=== PATIENT | female | born 1950 | race Caucasian/White ===

== ENCOUNTER 2024-06-03 12:23 | Emergency (ER) | payer MEDICARE ==
[~2024-06-03] VITALS: Ht 162.6 cm; Wt 59.0 kg
[2024-06-03 13:18] LABS: BASOPHILS # (AUTO) 0.03 K/uL (0.00-0.20); BASOPHILS % (AUTO) 0.5 % (0.0-5.0); EOSINOPHILS # (AUTO) 0.06 K/uL (0.00-0.70); HEMATOCRIT 39.8 % (36-48); IMMATURE GRANULOCYTE ABSOLUTE 0.02 K/uL (0-1); LYMPHOCYTES # (AUTO) 1.4 K/uL (1.0-4.8); LYMPHOCYTES % (AUTO) 23.8 % (21.0-51.0); MEAN CORPUSCULAR HEMOGLOBIN 31.3 pg (27.0-33.0); MEAN CORPUSCULAR HGB CONC 33.2 g/dL (32.0-36.0); MEAN CORPUSCULAR VOLUME 94.3 fL (79-99); MONOCYTES # (AUTO) 0.5 K/uL (0.1-1.0); MONOCYTES % (AUTO) 8.4 % (3.0-13.0); NEUTROPHILS # (AUTO) 3.9 K/uL (1.8-7.7); PLATELET COUNT (AUTO) 202 K/uL (130-400); RED BLOOD CELL COUNT(AUTO) 4.22 MIL/uL (4.00-5.50); RED CELL DISTRIBUTION WIDTH 13.7 % (11.0-15.5)
[2024-06-03 13:53] LABS: ALBUMIN 3.6 g/dL (3.5-5.0); BILIRUBIN,TOTAL 0.5 mg/dL (0.2-1.0); CREATININE 0.6 mg/dL (0.5-1.0); POTASSIUM 3.8 mmol/L (3.5-5.1); TOTAL PROTEIN, SERUM 6.8 g/dL (6.0-8.3)
[2024-06-03] MEDS: CEFAZOLIN SODIUM 2 GM VIAL IVPB STA (14:36)
[2024-06-03] MEDS: LIDOCAINE HCL 1% 20 ML VIAL INJ SCH (14:36)
[2024-06-03] MEDS: NEOMY SULF/BACITRA/POLYMYXIN B 1 EACH PACKET TP ONE (14:36)
[2024-06-03] MEDS: ONDANSETRON 4MG INJ IVP ONE (14:36)
[2024-06-03] MEDS: MORPHINE 2 MG SYG IVP ONE (14:37)
[2024-06-03] MEDS: TETANUS/DIPHTHERIA TOXOID [ADULT] 0.5 ML VIAL IM ONE (14:38)
[2024-06-03 14:57] VITALS: BP 148/76; PULSE 80; RESP 17; O2SAT 98
[2024-06-03] MEDS ORDERED: ACET-2079 PO (15:18)
[2024-06-03] MEDS ORDERED: CEPH500B PO (15:18)
== END 2024-06-03 15:42 | disposition home or self-care (01) ==
LOC: EDH 12:23
DX: S62.632B Displaced fracture of distal phalanx of right middle finger, initial encounter for open fracture (principal); E78.00 Pure hypercholesterolemia, unspecified; K21.9 Gastro-esophageal reflux disease without esophagitis; Z88.0 Allergy status to penicillin; Z88.8 Allergy status to other drugs, medicaments and biological substances; W23.0XXA Caught, crushed, jammed, or pinched between moving objects, initial encounter; Y93.89 Activity, other specified; Y92.89 Other specified places as the place of occurrence of the external cause; Y99.8 Other external cause status
CPT/HCPCS: 99284; 96365; 96375; 80053; 85025; 36415; 90714; 73130; 90471; 12001; J2270; J2405; J0690